=== PATIENT | male | born 1945 | race Caucasian/White ===

== ENCOUNTER 2022-05-26 01:25 | Emergency (ER) | payer OTHER ==
[2022-05-26 01:40] VITALS: BP 155/86; PULSE 81; RESP 16; TEMP 97.9; BMI 30.1
== END 2022-05-26 02:48 | disposition home or self-care (01) ==
LOC: FER 01:25
PROC: 0HQGXZZ Repair Left Hand Skin, External Approach (ICD-10-PCS; principal; 2022-05-26)
DX: S61.211A Laceration without foreign body of left index finger without damage to nail, initial encounter (principal); W26.0XXA Contact with knife, initial encounter
CPT/HCPCS: 99282-25

== ENCOUNTER 2023-04-20 04:05 | Emergency (ER) | payer OTHER ==
[2023-04-20 04:12] VITALS: BP 153/70; PULSE 70; RESP 16; TEMP 97.9; BMI 29.8
== END 2023-04-20 05:41 | disposition home or self-care (01) ==
LOC: FER 04:05
DX: S01.81XA Laceration without foreign body of other part of head, initial encounter (principal); W06.XXXA Fall from bed, initial encounter
CPT/HCPCS: 70450-TC; 99284-25